=== PATIENT | female | born 1990 | race African-American/Black ===

== ENCOUNTER 2017-10-21 08:36 | Emergency (ER) | payer SELFPAY ==
[~2017-10-21] VITALS: Ht 152.4 cm; Wt 77.1 kg
[2017-10-21 08:47] VITALS: BP 127/61
--- NOTE | 2017-10-21 09:11 | PHYS DOC ---
Past Medical History Past Medical History: No Pertinent History Past Surgical History: Alcohol Use: None Drug Use: None Adult General Chief Complaint Chief Complaint: COUGH HPI HPI Patient is a 26 year old female with no significant medical history who presents today complaining of a productive cough, and sore throat when coughing that began 2 days ago. Patient states she noted a trace of pink blood in her sputum. Patient denies any fever. She states she has history of smoking. Denies any hormone use. Denies any recent hospitalizations. Denies any unilateral leg pain, denies any family history of PE, denies any shortness of breath, essentially has a PERC score of 0 Review of Systems Review of Systems Constitutional: Denies fever or chills [] Eyes: Denies change in visual acuity, redness, or eye pain [] HENT: Sore throat. Denies nasal congestion sore throat [] Respiratory: cough denies shortness of breath [] Cardiovascular: No additional information not addressed in HPI [] GI: Denies abdominal pain, nausea, vomiting, bloody stools or diarrhea [] : Denies dysuria or hematuria [] Musculoskeletal: Denies back pain or joint pain [] Integument: Denies rash or skin lesions [] Neurologic: Denies headache, focal weakness or sensory changes [] All other systems were reviewed and found to be within normal limits, except as documented in this note. Allergies Allergies Allergies Coded Allergies Type Severity Reaction Last Updated Verified No Known Drug Allergies 10/04/14 No Physical Exam Physical Exam Constitutional: Well developed, well nourished, no acute distress, non-toxic appearance. [] HENT: Normocephalic, atraumatic, bilateral external ears normal, oropharynx moist, no oral exudates, nose normal. [] Eyes: PERRLA, EOMI, conjunctiva normal, no discharge. [] Neck: Normal range of motion, no tenderness, supple, no stridor. [] Cardiovascular:Heart rate regular rhythm, no murmur [] Lungs & Thorax: Bilateral breath sounds clear to auscultation [] Abdomen: Bowel sounds normal, soft, no tenderness, no masses, no pulsatile masses. [] Skin: Warm, dry, no erythema, no rash. [] Back: No tenderness, no CVA tenderness. [] Extremities: No tenderness, no cyanosis, no clubbing, ROM intact, no edema. [] Neurologic: Alert and oriented X 3, normal motor function, normal sensory function, no focal deficits noted. [] Psychologic: Affect normal, judgement normal, mood normal. [] Current Patient Data Vital Signs Vital Signs Date Time Temp Pulse Resp B/P (MAP) Pulse Ox O2 Delivery O2 Flow Rate FiO2 10/21/17 08:47 98.8 102 18 97 Room Air 98.8 EKG EKG [] Radiology/Procedures Radiology/Procedures [] Course & Med Decision Making Course & Med Decision Making Pertinent Labs and Imaging studies reviewed. (See chart for details) Patient is in the ED with symptoms consistent of bronchitis including cough and sore throat. She is a smoker. She was encouraged to consider smoking cessation. She was discharged with albuterol inhaler, prednisone, Tessalon Perles and Z- Diomedes. Encouraged to consider smoking cessation and follow-up with her PCP in 1-2 weeks. Dragon Disclaimer Dragon Disclaimer This electronic medical record was generated, in whole or in part, using a voice recognition dictation system. Departure Departure Impression: Primary Impression: Acute bronchitis Additional Impressions: Smoking addiction Viral pharyngitis Disposition: HOME, SELF-CARE Condition: STABLE Referrals: MARY VILLEGAS MD (PCP) Follow-up with your doctor in 1-2 weeks Patient Instructions: Acute Bronchitis, Smoking Cessation, Viral Pharyngitis Additional Instructions: You were seen with symptoms consistent of acute bronchitis. Consider smoking cessation. Take the prescribed medicines as ordered. Follow-up with your doctor in 1-2 weeks. Scripts Prednisone (PREDNISONE) 50 Mg Tablet 1 TAB PO DAILY, #5 TAB Prov: EUGENE HAYES APRN 10/21/17 Benzonatate (TESSALON PERLE) 100 Mg Capsule 1 CAP PO TID, #30 CAP Prov: ANDREWAEUGENE PRODUCE LABORER 10/21/17 Albuterol Sulfate (Proair Respiclick) 90 Mcg Aer.pow.ba 1 PUFF IH PRN Q6HRS Y for SHORTNESS OF BREATH, #1 INHALER Prov: EUGENE HAYES PRODUCE LABORER 10/21/17 Azithromycin (ZITHROMAX) 250 Mg Tablet 1 PKG PO UD, #1 PKG Prov: EUGENE HAYES APRN 10/21/17 Problem Qualifiers Primary Impression: Acute bronchitis Bronchitis organism: unspecified organism Qualified Codes: J20.9 - Acute bronchitis, unspecified MUTUNGA,EUGENE PRODUCE LABORER Oct 21, 2017 09:11
[2017-10-21] MEDS ORDERED: PROAIR RESPICL90 MCG IH (09:16)
[2017-10-21] MEDS ORDERED: AZIT250T PO (09:16)
[2017-10-21] MEDS ORDERED: BENZ100C PO (09:16)
[2017-10-21] MEDS ORDERED: PRED50TA PO (09:16)
== END 2017-10-21 09:28 | disposition home or self-care (01) ==
LOC: ER 08:36
DX: J20.9 Acute bronchitis, unspecified (principal); J02.8 Acute pharyngitis due to other specified organisms; B97.89 Other viral agents as the cause of diseases classified elsewhere; F17.200 Nicotine dependence, unspecified, uncomplicated
CPT/HCPCS: 99283

== ENCOUNTER 2017-11-04 19:35 | Emergency (ER) | payer SELFPAY ==
[~2017-11-04] VITALS: Ht 154.9 cm; Wt 80.3 kg
[~2017-11-04 19:35] MED LIST: AZIT250T PO; BENZ100C PO; PRED50TA PO; PROAIR RESPICL90 MCG IH
[2017-11-04 20:21] LABS: BASO % 0 % (0-3); EOS % 1 % (0-3); HEMATOCRIT 37.4 % (36.0-47.0); LYMPH # 2.4 x10^3/uL (1.0-4.8); LYMPH % 16 % (24-48); MEAN CORPUSCULAR HEMOGLOBIN 26 pg (25-35); MEAN CORPUSCULAR HGB CONC 32 g/dL (31-37); MEAN CORPUSCULAR VOLUME 82 fL (79-100); MONO % 6 % (0-9); NEUT % 77 % (31-73); PLATELET COUNT 374 x10^3/uL (140-400); RED BLOOD COUNT 4.58 x10^6/uL (3.50-5.40); RED CELL DISTRIBUTION WIDTH 16.9 % (11.5-14.5); WHITE BLOOD COUNT 14.8 x10^3/uL (4.0-11.0)
[2017-11-04 20:29] LABS: NEG OBC SER NEG; POS OBC SER POS
[2017-11-04 20:31] LABS: CALCIUM 9.3 mg/dL (8.5-10.1); CREATININE 0.7 mg/dL (0.6-1.0); GFR 122.4; POTASSIUM 3.3 mmol/L (3.5-5.1)
[2017-11-04 20:36] LABS: ALBUMIN/GLOBULIN RATIO 1.1 (1.0-1.7); TOTAL BILIRUBIN 0.2 mg/dL (0.2-1.0); TOTAL PROTEIN 7.8 g/dL (6.4-8.2)
[2017-11-04 21:01] LABS: BARBITURATES NEG (NEG); BENZODIAZEPINES NEG (NEG); CANNABINOIDS POS (NEG); COCAINE NEG (NEG); METHADONE NEG (NEG); OPIATES NEG (NEG); PHENCYCLIDINE NEG (NEG)
--- NOTE | 2017-11-04 21:07 | PHYS DOC ---
Past Medical History Past Medical History: Other Additional Past Medical Histor: SUBSTANCE ABUSE Past Surgical History: Alcohol Use: Heavy Drug Use: Marijuana, Methamphetamine Adult General Chief Complaint Chief Complaint: DRUG ABUSE HPI HPI Patient is a 26 year old AA female with history of alcohol and methamphetamine abuse who presents with request for rehabilitation placement. Patient states she last used methamphetamine alcohol earlier today. Denies SI or HI. Chest pain shortness of breath. No other acute symptoms or complaints. Patient brought in by her mother. [] Review of Systems Review of Systems Constitutional: Denies fever or chills [] Eyes: Denies change in visual acuity, redness, or eye pain [] HENT: Denies nasal congestion or sore throat [] Respiratory: Denies cough or shortness of breath [] Cardiovascular: No additional information not addressed in HPI [] GI: Denies abdominal pain, nausea, vomiting, bloody stools or diarrhea [] : Denies dysuria or hematuria [] Musculoskeletal: Denies back pain or joint pain [] Integument: Denies rash or skin lesions [] Neurologic: Denies headache, focal weakness or sensory changes [] Endocrine: Denies polyuria or polydipsia [] All other systems were reviewed and found to be within normal limits, except as documented in this note. Allergies Allergies Allergies Coded Allergies Type Severity Reaction Last Updated Verified No Known Drug Allergies 10/04/14 No Physical Exam Physical Exam Constitutional: Well developed, well nourished, no acute distress, non-toxic appearance. [] HENT: Normocephalic, atraumatic, bilateral external ears normal, oropharynx moist, no oral exudates, nose normal. [] Eyes: PERRLA, EOMI, conjunctiva normal, no discharge. [] Neck: Normal range of motion, no tenderness, supple, no stridor. [] Cardiovascular:Heart rate regular rhythm, no murmur [] Lungs & Thorax: Bilateral breath sounds clear to auscultation [] Abdomen: Bowel sounds normal, soft, no tenderness, no masses, no pulsatile masses. [] Skin: Warm, dry. [] Back: No tenderness.. [] Extremities: No tenderness, no cyanosis, no clubbing, ROM intact, no edema. [] Neurologic: Alert and oriented X 3, normal motor function, normal sensory function, no focal deficits noted. [] Psychologic: Affect normal, judgement normal, mood normal. [] Current Patient Data Vital Signs Vital Signs Date Time Temp Pulse Resp B/P (MAP) Pulse Ox O2 Delivery O2 Flow Rate FiO2 11/04/17 19:45 97.4 69 18 111/55 (73) 100 Room Air 97.4 Lab Values Laboratory Tests Test 11/04/17 19:50 11/04/17 19:57 White Blood Count 14.8 x10^3/uL (4.0-11.0) H Red Blood Count 4.58 x10^6/uL (3.50-5.40) Hemoglobin 12.0 g/dL (12.0-15.5) Hematocrit 37.4 % (36.0-47.0) Mean Corpuscular Volume 82 fL (79-100) Mean Corpuscular Hemoglobin 26 pg (25-35) Mean Corpuscular Hemoglobin Concent 32 g/dL (31-37) Red Cell Distribution Width 16.9 % (11.5-14.5) H Platelet Count 374 x10^3/uL (140-400) Neutrophils (%) (Auto) 77 % (31-73) H Lymphocytes (%) (Auto) 16 % (24-48) L Monocytes (%) (Auto) 6 % (0-9) Eosinophils (%) (Auto) 1 % (0-3) Basophils (%) (Auto) 0 % (0-3) Neutrophils # (Auto) 11.4 x10^3uL (1.8-7.7) H Lymphocytes # (Auto) 2.4 x10^3/uL (1.0-4.8) Monocytes # (Auto) 0.9 x10^3/uL (0.0-1.1) Eosinophils # (Auto) 0.1 x10^3/uL (0.0-0.7) Basophils # (Auto) 0.0 x10^3/uL (0.0-0.2) Sodium Level 144 mmol/L (136-145) Potassium Level 3.3 mmol/L (3.5-5.1) L Chloride Level 103 mmol/L (98-107) Carbon Dioxide Level 30 mmol/L (21-32) Anion Gap 11 (6-14) Blood Urea Nitrogen 7 mg/dL (7-20) Creatinine 0.7 mg/dL (0.6-1.0) Estimated GFR (Cockcroft-Gault) 122.4 BUN/Creatinine Ratio 10 (6-20) Glucose Level 48 mg/dL (70-99) L Calcium Level 9.3 mg/dL (8.5-10.1) Total Bilirubin 0.2 mg/dL (0.2-1.0) Aspartate Amino Transferase (AST) 60 U/L (15-37) H Alanine Aminotransferase (ALT) 32 U/L (14-59) Alkaline Phosphatase 95 U/L (46-116) Total Protein 7.8 g/dL (6.4-8.2) Albumin 4.0 g/dL (3.4-5.0) Albumin/Globulin Ratio 1.1 (1.0-1.7) Serum Test, Qualitative Negative (NEG) Ethyl Alcohol Level < 10 mg/dL (0-10) POC Urine HCG, Qualitative Hcg negative (Negative) Laboratory Tests 11/04/17 19:50 Laboratory Tests 11/04/17 19:50 EKG EKG [EKG: Sinus rhythm, rate 100, no acute ST-T wave changes, QTC 478.] Radiology/Procedures Radiology/Procedures [] Course & Med Decision Making Course & Med Decision Making Pertinent Labs and Imaging studies reviewed. (See chart for details) [Currently not show evidence of withdrawal. PAT Consult requested. Patient agreeable to inpatient rehab. Fed while in the ED> ] Dragon Disclaimer Dragon Disclaimer This electronic medical record was generated, in whole or in part, using a voice recognition dictation system. Departure Departure Impression: Primary Impression: Polysubstance abuse Disposition: 01 HOME, SELF-CARE Condition: GOOD Patient Instructions: Polysubstance Abuse Additional Instructions: Please go directly to inpatient rehabilitation after leaving the emergency department. Follow-up with PCP or health Department after completing rehab. NOEL RAI DO Nov 04, 2017 21:07
[2017-11-04 21:19] VITALS: BP 118/65
--- NOTE | 2017-11-05 06:50 | EKG ---
[facility] [address] [place] [address] Test Date: 2017-11-04 Test Time: 20:25:48 Pat Name: SUDHIR JEAN Department: Room: Gender: F Technical Supervisor: : 1990 Requested By: NOEL RAI Order Number: [id number] Reading MD: Measurements Intervals [place] Rate: 100 P: 56 SD: 104 QRS: 65 QRSD: 88 T: 42 QT: 368 QTc: 478 Interpretive Statements SINUS RHYTHM LEFT ATRIAL ABNORMALITY PROLONGED QT ABNORMAL ECG RI6.01 No previous ECG available for comparison
== END 2017-11-04 21:19 | disposition home or self-care (01) ==
LOC: ER 19:35
DX: F19.10 Other psychoactive substance abuse, uncomplicated (principal); F15.10 Other stimulant abuse, uncomplicated; F10.10 Alcohol abuse, uncomplicated; F12.10 Cannabis abuse, uncomplicated
CPT/HCPCS: 36415; 80053; 80307; 81025; 84703; 85025; 93005; 99285; G0480; G0479

== ENCOUNTER 2018-07-01 09:09 | Emergency (ER) | payer OTHER ==
[2018-07-01] MEDS: ACETAMINOPHEN 500 MG TABLET PO (09:42)
[2018-07-01 10:10] LABS: NEG OBC UR NEG; POS OBC UR POS; U PREG PATIENT NEGATIVE (NEG)
== END 2018-07-01 12:09 | disposition home or self-care (01) ==
LOC: ER 09:09
DX: S16.1XXA Strain of muscle, fascia and tendon at neck level, initial encounter (principal); S30.0XXA Contusion of lower back and pelvis, initial encounter; R51 Headache; R55 Syncope and collapse; X58.XXXA Exposure to other specified factors, initial encounter; Y93.89 Activity, other specified; Y99.8 Other external cause status; Y92.89 Other specified places as the place of occurrence of the external cause
CPT/HCPCS: 72040; 72100; 72220; 81025; 93005; 99285-25

== ENCOUNTER 2018-10-10 03:10 | Emergency (ER) | payer OTHER ==
[~2018-10-10] VITALS: Ht 165.1 cm; Wt 56.7 kg
--- NOTE | 2018-10-10 03:37 | PHYS DOC ---
Past Medical History Past Medical History: Anxiety, Migraines, Other Additional Past Medical Histor: SUBSTANCE ABUSE, SYNCOPE, CHRONIC NECK PAIN Past Surgical History: Cholecystectomy, Alcohol Use: Rarely Drug Use: Marijuana Adult General Chief Complaint Chief Complaint: CHEST PAIN-NON CARDIAC NATURE HPI HPI Patient is a 36 year old female who presents with anxiety symptoms. Patient states she has been having what seems to be musculoskeletal chest pain over the last 3 days. She also endorses a chronic history of vasovagal syncope. She has had these kinds of symptoms in the past which were associated with anxiety. She does have a prior history also palpitations which she does feel this evening. She came to the ER tonight because the pain felt more severe to her. No recent illness. No fever or chills or cough. Patient does take large amounts of oxycodone at baseline and review of KTRA's reveals scheduled refills of oxycodone, 180 per month. She also takes Adderall. Review of Systems Review of Systems Constitutional: Denies fever Eyes: Denies change in visual acuity HENT: Denies nasal congestion or sore throat Respiratory: Denies cough or shortness of breath Cardiovascular: No additional information not addressed in HPI GI: Denies abdominal pain, nausea : Denies dysuria or hematuria Musculoskeletal: treated for chronic MSK pain by her PCP Integument: Denies rash or skin lesions Neurologic: Denies headache All other systems were reviewed and found to be within normal limits, except as documented in this note. Current Medications Current Medications Current Medications Medications (Trade) Dose Ordered Sig/Zoran Start Time Stop Time Status Last Admin Dose Admin Ibuprofen (Motrin) 800 mg 1X ONCE 10/10/18 04:30 10/10/18 04:31 DC 10/10/18 04:06 800 MG Lorazepam (Ativan) 1 mg 1X ONCE 10/10/18 04:15 10/10/18 04:16 DC 10/10/18 04:05 1 MG Allergies Allergies Allergies Coded Allergies Type Severity Reaction Last Updated Verified No Known Drug Allergies 10/04/14 No Physical Exam Physical Exam Constitutional: Well developed, well nourished, no acute distress, non-toxic appearance HENT: Normocephalic, atraumatic, bilateral external ears normal, oropharynx moist Eyes: PERRLA Neck: Normal range of motion, no tenderness Cardiovascular:Heart rate regular rhythm, no murmur Lungs & Thorax: Bilateral breath sounds clear to auscultation Abdomen: Bowel sounds normal, soft Skin: Warm, dry, no erythema Extremities: No edema Neurologic: Alert and oriented X 3 Psychologic: Affect is anxious Current Patient Data Vital Signs Vital Signs Date Time Temp Pulse Resp B/P (MAP) Pulse Ox O2 Delivery O2 Flow Rate FiO2 10/10/18 03:51 98.8 98 18 141/84 (103) 98 Room Air 98.8 Lab Values Laboratory Tests Test 10/10/18 03:26 10/10/18 03:40 10/10/18 03:46 POC Urine HCG, Qualitative Hcg negative (Negative) Ethyl Alcohol Level < 10 mg/dL (0-10) POC Troponin I 0.00 ng/ml (<0.08) EKG EKG No STEMI. NSR Interpretation Time: 03:35 Radiology/Procedures Radiology/Procedures [] Course & Med Decision Making Course & Med Decision Making Pertinent Labs and Imaging studies reviewed. (See chart for details) 03:25: Patient is seen and examined. Primary acute complaint this evening is palpitations and chest pain which has been present for multiple days. Will check single troponin. EKG is non-acute. Single dose meds or anxiety/pain. Ativan and motrin. 04:25: All results are reviewed and discussed with the patient. CXR normal. Troponin not elevated. EKG non-acute. Patient given PO ativan and ibuprofen in the ER which did begin to improve her symptoms. She already has oxycodone at home prescribed by her PCP. Discharged to home. She is accompanied by a male friend this evening who is driving her home. Encouraged to f/u with PCP or return to the ER for any new or worsening symptoms. Dragon Disclaimer Dragon Disclaimer This electronic medical record was generated, in whole or in part, using a voice recognition dictation system. Departure Departure Referrals: EDUARDO SENA-Carmen (PCP) Scripts Ibuprofen (IBUPROFEN) 800 Mg Tablet 800 MG PO PRN TID PRN for PAIN, #20 TAB take with food or milk to avoid upsetting stomach Prov: ELIZABET SY DO 10/10/18 ELIZABET SY DO Oct 10, 2018 03:37
[2018-10-10 03:51] VITALS: BP 141/84
--- NOTE | 2018-10-10 03:56 | EKG ---
[facility] [address] [place] [address] Test Date: 2018-10-10 Test Time: 03:32:10 Pat Name: SUDHIR JEAN Department: Room: Gender: F Public Address System Installer: : 1981-11-09 Requested By: ELIZABET SY Order Number: [id number] Reading MD: Vincent Cramer MD Measurements Intervals [place] Rate: 86 P: 63 IA: 116 QRS: -2 QRSD: 78 T: 34 QT: 356 QTc: 429 Interpretive Statements SINUS RHYTHM Electronically Signed On 10-12-2018 10:04:57 [employer] by Vincent Cramer MD
[2018-10-10] MEDS ORDERED: LORazepam 1 MG TABLET PO ONE (04:15)
[2018-10-10] MEDS ORDERED: IBUP-1060 PO (04:16)
[2018-10-10] MEDS ORDERED: IBUPROFEN 400 MG TABLET. PO ONE (04:30)
--- NOTE | 2018-10-10 06:35 | RAD ---
INDICATION: chest pain COMPARISON: None. FINDINGS: Single view of chest obtained. The lung apices are excluded from the [id number]. No definite focal airspace consolidation. Cardiac silhouette is not enlarged. IMPRESSION: 1. No focal airspace consolidation. Electronically signed by: Issa Zuniga MD (10/10/2018 6:32 AM) [id number]
== END 2018-10-10 04:41 | disposition home or self-care (01) ==
LOC: ER 03:10
DX: R07.89 Other chest pain (principal); G89.29 Other chronic pain; G43.909 Migraine, unspecified, not intractable, without status migrainosus; F41.9 Anxiety disorder, unspecified
CPT/HCPCS: 36415; 71045; 81025; 84484; 93005; 99285; G0480

== ENCOUNTER 2019-01-25 05:37 | Emergency (ER) | payer OTHER ==
[~2019-01-25] VITALS: Ht 167.6 cm; Wt 54.4 kg
[~2019-01-25 05:37] MED LIST changes: +IBUP-1060 PO; +ORPH100T PO; +PRED20TA PO
[2019-01-25 06:10] LABS: BASO % 0 % (0-3); EOS # 0.2 x10^3/uL (0.0-0.7); EOS % 3 % (0-3); HEMATOCRIT 40.3 % (36.0-47.0); HEMOGLOBIN 13.3 g/dL (12.0-15.5); LYMPH # 2.6 x10^3/uL (1.0-4.8); LYMPH % 33 % (24-48); MEAN CORPUSCULAR HEMOGLOBIN 32 pg (25-35); MEAN CORPUSCULAR HGB CONC 33 g/dL (31-37); MEAN CORPUSCULAR VOLUME 97 fL (79-100); MONO # 0.4 x10^3/uL (0.0-1.1); MONO % 6 % (0-9); NEUT # 4.5 x10^3uL (1.8-7.7); NEUT % 58 % (31-73); PLATELET COUNT 234 x10^3/uL (140-400); RED BLOOD COUNT 4.18 x10^6/uL (3.50-5.40); RED CELL DISTRIBUTION WIDTH 14.4 % (11.5-14.5); WHITE BLOOD COUNT 7.8 x10^3/uL (4.0-11.0)
[2019-01-25 06:18] LABS: BILIRUBIN,URINE NEGATIVE (NEG); CLARITY,URINE CLEAR; COLOR,URINE YELLOW; NITRITE,URINE NEGATIVE (NEG); PROTEIN,URINE NEGATIVE (NEG-TRACE); UROBILINOGEN,URINE 0.2 mg/dL (0.2 mg/dL)
[2019-01-25 06:32] LABS: CALCIUM 8.7 mg/dL (8.5-10.1); CREATININE 0.7 mg/dL (0.6-1.0); GFR 113.9; POTASSIUM 4.1 mmol/L (3.5-5.1)
[2019-01-25 06:37] LABS: ALBUMIN 3.3 g/dL (3.4-5.0); ALBUMIN/GLOBULIN RATIO 0.9 (1.0-1.7); MAGNESIUM 2.1 mg/dL (1.8-2.4); TOTAL BILIRUBIN 0.1 mg/dL (0.2-1.0); TOTAL PROTEIN 6.8 g/dL (6.4-8.2)
[2019-01-25 06:43] LABS: CREATINE KINASE 61 U/L (26-192)
--- NOTE | 2019-01-25 06:50 | EKG ---
[facility] [address] [place] [address] Test Date: 2019-01-25 Test Time: 05:42:10 Pat Name: SUDHIR JEAN Department: Room: Gender: F Comsec Manager: : 1981-11-09 Requested By: SAGRARIO MCCRARY Order Number: [id number] Reading MD: George Sandoval Measurements Intervals [place] Rate: 80 P: 56 IN: 120 QRS: -19 QRSD: 88 T: 28 QT: 396 QTc: 460 Interpretive Statements SINUS RHYTHM LEFTWARD AXIS Electronically Signed On 02-01-2019 10:52:40 DIRECTOR BEHAVIORAL HEALTH by George Sandoval
[2019-01-25 06:51] LABS: SQUAMOUS EPITHELIAL CELL,UR OCC /LPF
[2019-01-25 06:52] LABS: BACTERIA,URINE FEW /HPF (0-FEW); RBC,URINE 0 /HPF (0-2)
[2019-01-25 07:04] LABS: BARBITURATES NEG (NEG); BENZODIAZEPINES NEG (NEG); CANNABINOIDS NEG (NEG); COCAINE NEG (NEG); METHADONE NEG (NEG); OPIATES POS (NEG); PHENCYCLIDINE NEG (NEG)
[2019-01-25 07:06] LABS: AMPHETAMINE/METHAMPHETAMINE NEG (NEG)
[2019-01-25] MEDS ORDERED: BENZTROPINE MESYLATE 2 MG/2 ML VIAL. IV STA (07:30)
[2019-01-25] MEDS ORDERED: IV NORMAL SALINE 1000ML BAG 1,000 ML IV ONE (07:45)
--- NOTE | 2019-01-25 08:23 | RAD ---
CT head and cervical spine without contrast History: Fall, head and neck pain Technique: Noncontrast CT imaging was performed of the head and cervical spine. Multiplanar reconstruction images are submitted. Exposure: One or more of the following individualized dose reduction techniques were utilized for this examination: 1. Automated exposure control 2. Adjustment of the mA and/or kV according to patient size 3. Use of iterative reconstruction technique. Head CT Comparison: None Findings: No acute extra-axial or parenchymal hemorrhage is identified. There is no significant intra-axial mass effect, midline shift, or extra-axial fluid collection. The hogan-white differentiation of the major vascular territories is preserved. There is what likely represents approximate 1 cm incidental right choroidal fissure cyst. The ventricles, sulci, and cisterns are within normal limits in size and configuration. The mastoid air cells and the visualized paranasal sinuses are aerated. There is no significant focal calvarial abnormality. Impression: 1. No acute intracranial abnormality is identified. Cervical spine CT Comparison: None Findings: No acute cervical spine fracture is identified. Vertebral body stature and AP alignment are within normal limits. Atlanto-axial distance is within normal limits. There is appropriate alignment of lateral masses of C1 relative to C2. Occipital condylar-C1 relationship is maintained. There is mild degenerative disc disease at C4-5 and C7-T1. There is multilevel mild facet degenerative change. There is mild levoscoliosis. Impression: 1. No acute cervical spine fracture is identified. Electronically signed by: Ezequiel Philippe MD (01/25/2019 8:20 AM) [id number]
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
[2019-01-25] MEDS ORDERED: BENZ1TAB5 PO (09:50)
[2019-01-25 10:00] VITALS: BP 98/57
== END 2019-01-25 10:02 | disposition home or self-care (01) ==
LOC: ER 05:37
DX: S00.93XA Contusion of unspecified part of head, initial encounter (principal); G24.9 Dystonia, unspecified; R51 Headache; M54.2 Cervicalgia; G89.29 Other chronic pain; Z86.79 Personal history of other diseases of the circulatory system; W18.39XA Other fall on same level, initial encounter; Y93.01 Activity, walking, marching and hiking; Y92.89 Other specified places as the place of occurrence of the external cause; Y99.8 Other external cause status
CPT/HCPCS: 36415; 51701; 70450; 72125; 80053; 80307; 81001; 81025; 82553; 83735; 84484; 85025; 93005; 96361; 96374; 99284; G0480; J0515; J7030

== ENCOUNTER 2019-03-30 18:45 | Emergency (ER) | payer OTHER ==
[~2019-03-30] VITALS: Ht 162.6 cm; Wt 62.6 kg
[~2019-03-30 18:45] MED LIST changes: +BENZ1TAB5 PO
[2019-03-30] MEDS ORDERED: KETOROLAC 30 MG/ML VIAL. IV ONE (19:45)
[2019-03-30] MEDS ORDERED: 0.9 % SODIUM CHLORIDE 10 ML DISP.SYRIN. IV PRN (19:45)
[2019-03-30] MEDS ORDERED: METOCLOPRAMIDE HCL 10 MG/2 ML VIAL. IV ONE (19:45)
[2019-03-30] MEDS ORDERED: diphenhydrAMINE 50 MG/ML VIAL IVP ONE (19:45)
[2019-03-30 20:04] LABS: BASO # 0.1 x10^3/uL (0.0-0.2); BASO % 1 % (0-3); EOS # 0.1 x10^3/uL (0.0-0.7); EOS % 1 % (0-3); HEMATOCRIT 35.7 % (36.0-47.0); HEMOGLOBIN 12.3 g/dL (12.0-15.5); LYMPH # 2.6 x10^3/uL (1.0-4.8); LYMPH % 26 % (24-48); MEAN CORPUSCULAR HEMOGLOBIN 34 pg (25-35); MEAN CORPUSCULAR HGB CONC 35 g/dL (31-37); MEAN CORPUSCULAR VOLUME 97 fL (79-100); MONO # 0.6 x10^3/uL (0.0-1.1); MONO % 6 % (0-9); NEUT # 6.7 x10^3uL (1.8-7.7); NEUT % 67 % (31-73); PLATELET COUNT 310 x10^3/uL (140-400); RED BLOOD COUNT 3.68 x10^6/uL (3.50-5.40); RED CELL DISTRIBUTION WIDTH 14.9 % (11.5-14.5); WHITE BLOOD COUNT 10.1 x10^3/uL (4.0-11.0)
[2019-03-30 20:11] LABS: CALCIUM 9.2 mg/dL (8.5-10.1); CREATININE 0.7 mg/dL (0.6-1.0); GFR 113.9; POTASSIUM 3.9 mmol/L (3.5-5.1)
[2019-03-30 20:17] LABS: ALBUMIN 3.6 g/dL (3.4-5.0); TOTAL BILIRUBIN 0.2 mg/dL (0.2-1.0); TOTAL PROTEIN 7.3 g/dL (6.4-8.2)
[2019-03-30 20:18] LABS: BILIRUBIN,URINE NEGATIVE (NEG); CLARITY,URINE CLEAR; COLOR,URINE YELLOW; NITRITE,URINE NEGATIVE (NEG); PROTEIN,URINE NEGATIVE (NEG-TRACE); UROBILINOGEN,URINE 0.2 mg/dL (0.2 mg/dL)
[2019-03-30 20:27] LABS: BACTERIA,URINE 0 /HPF (0-FEW); RBC,URINE 0 /HPF (0-2); SQUAMOUS EPITHELIAL CELL,UR OCC /LPF; WBC,URINE OCC /HPF (0-4)
[2019-03-30 21:09] LABS: AMPHETAMINE/METHAMPHETAMINE POS (NEG); BARBITURATES NEG (NEG); BENZODIAZEPINES NEG (NEG); CANNABINOIDS NEG (NEG); COCAINE NEG (NEG); METHADONE NEG (NEG); OPIATES NEG (NEG); PHENCYCLIDINE NEG (NEG)
[2019-03-30 21:39] VITALS: BP 114/68
--- NOTE | 2019-03-30 21:40 | PHYS DOC ---
Past Medical History Past Medical History: Anxiety, CHF, Depression, Hyperthyroid, Hypothyroid, Kidney Stone, Pneumonia, Seizure, TIA Additional Past Medical Histor: VASOVAGAL SYNCOPE, CHRONIC BACK AND NECK PAIN Past Surgical History: Cholecystectomy, Smoking: Cigarettes Additional Information: 1-2 CIGARETTES PER DAY Alcohol Use: None Drug Use: None Adult General Chief Complaint Chief Complaint: HEADACHE HPI HPI Patient is a 37 year old female presenting with a chief complaint of headache. Patient states that she has a history of migraines and this is a typical migraine for her. Patient states that she is also not slept in the last 3 days as she just started a new job today. Patient states that she has a history of insomnia. Ambien which was discontinued at the beginning of this year. She states that she is suffering from insomnia since the beginning of this year. Patient denies fever, chills, nausea, vomiting, diarrhea, dysuria, chest pain, soreness of breath. Patient states that she contacted her PCP but did not hear back from them and so that is why she came to the ED. Review of Systems Review of Systems Patient denies fever, chills, nausea, vomiting, diarrhea, dysuria, chest pain, shortness of breath, photophobia. Current Medications Current Medications Current Medications Medications (Trade) Dose Ordered Sig/Zoran Start Time Stop Time Status Last Admin Dose Admin Diphenhydramine HCl (Benadryl) 25 mg 1X ONCE 03/30/19 19:45 03/30/19 19:46 DC 03/30/19 20:44 25 MG Ketorolac Tromethamine (Toradol 30mg Vial) 30 mg 1X ONCE 03/30/19 19:45 03/30/19 19:46 DC 03/30/19 20:43 30 MG Metoclopramide HCl (Reglan Vial) 10 mg 1X ONCE 03/30/19 19:45 03/30/19 19:46 DC 03/30/19 20:44 10 MG Sodium Chloride (Normal Saline Flush) 10 ml QSHIFT PRN 03/30/19 19:45 03/30/19 22:14 DC 03/30/19 20:44 10 ML Allergies Allergies Allergies Coded Allergies Type Severity Reaction Last Updated Verified No Known Drug Allergies 10/04/14 No Physical Exam Physical Exam Constitutional: Well developed, well nourished, no acute distress, non-toxic appearance. HENT: Normocephalic, atraumatic, normocaphalic Eyes: PERRL, EOMI Neck: Normal range of motion, no tenderness, supple Cardiovascular:Heart rate regular rhythm, no murmur Resp: Bilateral breath sounds clear to auscultation Abdomen: Soft, no tenderness, no distension Skin: Warm, dry, no erythema, no rash. Back: No tenderness, no CVA tenderness. Extremities: No tenderness, ROM intact, no edema. Neurologic: Alert and oriented X 3, normal motor function, normal sensory function, no focal deficits noted. Psychologic: Affect normal, judgement normal, mood normal. Current Patient Data Vital Signs Vital Signs Date Time Temp Pulse Resp B/P (MAP) Pulse Ox O2 Delivery O2 Flow Rate FiO2 03/30/19 21:39 86 16 98 03/30/19 19:10 98.3 104/69 (81) Room Air 98.3 Lab Values Laboratory Tests Test 03/30/19 19:55 03/30/19 20:11 03/30/19 20:13 White Blood Count 10.1 x10^3/uL (4.0-11.0) Red Blood Count 3.68 x10^6/uL (3.50-5.40) Hemoglobin 12.3 g/dL (12.0-15.5) Hematocrit 35.7 % (36.0-47.0) L Mean Corpuscular Volume 97 fL (79-100) Mean Corpuscular Hemoglobin 34 pg (25-35) Mean Corpuscular Hemoglobin Concent 35 g/dL (31-37) Red Cell Distribution Width 14.9 % (11.5-14.5) H Platelet Count 310 x10^3/uL (140-400) Neutrophils (%) (Auto) 67 % (31-73) Lymphocytes (%) (Auto) 26 % (24-48) Monocytes (%) (Auto) 6 % (0-9) Eosinophils (%) (Auto) 1 % (0-3) Basophils (%) (Auto) 1 % (0-3) Neutrophils # (Auto) 6.7 x10^3uL (1.8-7.7) Lymphocytes # (Auto) 2.6 x10^3/uL (1.0-4.8) Monocytes # (Auto) 0.6 x10^3/uL (0.0-1.1) Eosinophils # (Auto) 0.1 x10^3/uL (0.0-0.7) Basophils # (Auto) 0.1 x10^3/uL (0.0-0.2) Sodium Level 138 mmol/L (136-145) Potassium Level 3.9 mmol/L (3.5-5.1) Chloride Level 102 mmol/L (98-107) Carbon Dioxide Level 27 mmol/L (21-32) Anion Gap 9 (6-14) Blood Urea Nitrogen 12 mg/dL (7-20) Creatinine 0.7 mg/dL (0.6-1.0) Estimated GFR (Cockcroft-Gault) 113.9 BUN/Creatinine Ratio 17 (6-20) Glucose Level 94 mg/dL (70-99) Calcium Level 9.2 mg/dL (8.5-10.1) Total Bilirubin 0.2 mg/dL (0.2-1.0) Aspartate Amino Transferase (AST) 16 U/L (15-37) Alanine Aminotransferase (ALT) 21 U/L (14-59) Alkaline Phosphatase 47 U/L (46-116) Total Protein 7.3 g/dL (6.4-8.2) Albumin 3.6 g/dL (3.4-5.0) Albumin/Globulin Ratio 1.0 (1.0-1.7) Urine Color Yellow Urine Clarity Clear Urine pH 7.0 Urine Specific [place] 1.010 Urine Protein Negative mg/dL (NEG-TRACE) Urine Glucose (UA) Negative mg/dL (NEG) Urine Ketones (Stick) Negative mg/dL (NEG) Urine Blood Negative (NEG) Urine Nitrite Negative (NEG) Urine Bilirubin Negative (NEG) Urine Urobilinogen Dipstick 0.2 mg/dL (0.2 mg/dL) Urine Leukocyte Esterase Negative (NEG) Urine RBC 0 /HPF (0-2) Urine WBC Occ /HPF (0-4) Urine Squamous Epithelial Cells Occ /LPF Urine Bacteria 0 /HPF (0-FEW) Urine Opiates Screen Neg (NEG) Urine Methadone Screen Neg (NEG) Urine Barbiturates Neg (NEG) Urine Phencyclidine Screen Neg (NEG) Urine Amphetamine/Methamphetamine Pos (NEG) Urine Benzodiazepines Screen Neg (NEG) Urine Cocaine Screen Neg (NEG) Urine Cannabinoids Screen Neg (NEG) Urine Ethyl Alcohol Neg (NEG) POC Urine HCG, Qualitative Hcg negative (Negative) Laboratory Tests 03/30/19 19:55 Laboratory Tests 03/30/19 19:55 EKG EKG [] Radiology/Procedures Radiology/Procedures [] Course & Med Decision Making Course & Med Decision Making Pertinent Labs studies reviewed. (See chart for details) Ordered labs, urine, urine . Labs are within normal limits. Urine is negative. UDS showed amphetamines/meth but patient states that she took 1 Adderall today. Patient was given IV Benadryl, IV Toradol, IV Reglan. On recheck patient states that her headache is relieved. Will DC pt with 2 Ambien 10 mg tablets. Discussed results and plan of care with patient. Patient is instructed to follow up with PCP in one to 2 days. Appropriate discharge instructions given to patient to return to the ED or to seek immediate medical evaluation. Dragon Disclaimer Dragon Disclaimer This electronic medical record was generated, in whole or in part, using a voice recognition dictation system. Departure Departure Referrals: EDUARDO SENA-C (PCP) Scripts Zolpidem Tartrate (AMBIEN) 10 Mg Tablet 10 MG PO PRN QHS PRN for Daily for 2 Days, TAB 0 Refills Prov: AMINA BARRAGAN DO 03/30/19 AMINA BARRAGAN DO March 30, 2019 21:40
[2019-03-30] MEDS ORDERED: ZOLP10TA PO (21:44)
== END 2019-03-30 22:14 | disposition home or self-care (01) ==
LOC: ER 18:45
DX: G43.909 Migraine, unspecified, not intractable, without status migrainosus (principal); F41.9 Anxiety disorder, unspecified; I50.9 Heart failure, unspecified; F32.9 Major depressive disorder, single episode, unspecified; E03.9 Hypothyroidism, unspecified; G89.29 Other chronic pain; F17.210 Nicotine dependence, cigarettes, uncomplicated; Z87.442 Personal history of urinary calculi; Z90.49 Acquired absence of other specified parts of digestive tract; Z98.890 Other specified postprocedural states
CPT/HCPCS: 36415; 80053; 80307; 81001; 81025; 85025; 96374; 96375; 99284; J1200; J1885; J2765